=== PATIENT | female | born 1955 | race Caucasian/White ===

== ENCOUNTER 2019-09-20 15:48 | Outpatient (CLI) | payer OTHER, SELFPAY ==
--- NOTE | ~2019-09-20 | XR_ITS ---
EXAMINATION: XR sacrum coccyx min 2V INDICATION: Overactive bladder TECHNIQUE: Three views of the sacrum and coccyx are obtained. COMPARISON: 05/20/2016 FINDINGS: A stimulator device is implanted in the subcutaneous tissues of the right buttock. Its lead enters the right pelvis through the sacrum. The lead is unchanged in position since the comparison e xamination. Bone alignment is normal. There is no fracture. There are changes of bilateral hip arthro plasty. Severe lumbar spondylosis is noted. IMPRESSION: 1. Stimulator device without significant change since the comparison examination. Reviewed, dictated and finalized at location A. IMPRESSION: 1. Stimulator device without significant change since the comparison [email or web address] [email or web address]
== END 2019-09-20 15:49 | disposition home or self-care (01) ==
PROVIDERS: PCP Family Medicine
DX: N32.81 Overactive bladder (principal)
CPT/HCPCS: 72220